=== PATIENT | male | born 1990 | race Caucasian/White ===

== ENCOUNTER 2024-02-23 01:26 | Emergency (ER) | payer MEDICAID ==
[~2024-02-23] VITALS: Ht 170.2 cm; Wt 90.0 kg
[~2024-02-23 01:26] MED LIST: BUSP15TA3 PO
[2024-02-23] MEDS ORDERED: ONDA4TAB50 MT (01:58)
[2024-02-23 01:59] VITALS: BP 128/82; PULSE 63; RESP 16; TEMP 98.9; O2SAT 99
[2024-02-23] MEDS ORDERED: ONDANSETRON 4MG ODT PO ONE (02:00)
== END 2024-02-23 02:50 | disposition left against medical advice (07) ==
LOC: ER 01:26
DX: R11.2 Nausea with vomiting, unspecified (principal); Z53.21 Procedure and treatment not carried out due to patient leaving prior to being seen by health care provider

== ENCOUNTER 2024-12-21 13:22 | Emergency (ER) | payer MEDICAID ==
[~2024-12-21] VITALS: Ht 167.6 cm; Wt 70.0 kg
[~2024-12-21 13:22] MED LIST changes: +ONDA4TAB50 MT
[2024-12-21 13:31] VITALS: TEMP 37.1; O2SAT 98
[2024-12-21] MEDS: METHOCARBAMOL 500MG TABLET PO ONE (14:30)
[2024-12-21] MEDS: DIPHENHYDRAMINE 25MG CAPSULE PO ONE (14:30)
[2024-12-21] MEDS: KETOROLAC 30MG/ML VIAL IM ONE (14:46)
[2024-12-21 14:54] VITALS: BP 117/75; PULSE 71; RESP 12; O2SAT 99
[2024-12-21] MEDS ORDERED: IBUP-2029 MT (15:34)
[2024-12-21] MEDS ORDERED: METH-653 MT (15:34)
== END 2024-12-21 15:46 | disposition home or self-care (01) ==
LOC: ER 13:22
DX: G44.209 Tension-type headache, unspecified, not intractable (principal)
CPT/HCPCS: 99283; 96372; J1885; Q0163